=== PATIENT | female | born 1980 | race American Indian/Alaskan Native ===

== ENCOUNTER 2017-09-11 20:54 | Emergency (ER) | payer SELFPAY ==
[2017-09-11 21:55] LABS: Basophils # (Auto) 0.1 K/mm3 (0.0-0.1); Eosinophils # (Auto) 0.1 K/mm3 (0.0-0.4); Eosinophils % (Auto) 1.1 % (0.0-4.3); Lymphocytes # (Auto) 3.5 K/mm3 (1.2-5.4); Lymphocytes % (Auto) 37.7 % (13.4-35.0); Mean Corpuscular HGB Conc 30 % (30-34); Monocytes # (Auto) 0.6 K/mm3 (0.0-0.8); Monocytes % (Auto) 6.6 % (0.0-7.3); Platelet Count 410 K/mm3 (140-440); Red Blood Count 6.13 M/mm3 (3.65-5.03); Red Cell Distribution Width 17.1 % (13.2-15.2)
[2017-09-11 22:03] LABS: BUN/Creatinine Ratio 11; Blood Urea Nitrogen 10 mg/dL (7-17); Calcium 9.1 mg/dL (8.4-10.2); Hemolysis Index 2
[2017-09-11 22:25] LABS: Hematocrit 40.7 % (30.3-42.9); Hemoglobin 12.4 gm/dl (10.1-14.3); Mean Corpuscular Volume 67 fl (79-97)
[2017-09-11 22:26] LABS: Mean Corpuscular Hemoglobin 20 pg (28-32)
[2017-09-11] MEDS ORDERED: NACL 0.9% 1000 ML 2,000 ML IV ONE (22:35)
[2017-09-11] MEDS ORDERED: NACL 0.9% 1000 ML 1,000 ML ONE ×2 (22:40→22:45)
[2017-09-12 00:09] LABS: Bilirubin,Urine NEG (Negative); Blood,Urine LG (Negative); Color,Urine Straw (Yellow); Protein,Urine <15 mg/dL mg/dL (Negative); Urobilinogen,Urine < 2.0 mg/dL (<2.0)
--- NOTE | 2017-09-12 11:13 | Emergency Department Report ---
ED Chest Pain HPI - General Chief Complaint: Chest Pain Stated Complaint: BLURR VISION, DIZZINESS,NAUSEATED Time Seen by Provider: 09/12/17 11:07 Source: patient Mode of arrival: Ambulatory Limitations: No Limitations - History of Present Illness Initial Comments: This is a morbidly obese 37-year-old female who presents to the emergency department with multiple complaints none of which are particularly active at this time. Yesterday she arrives with chief complaint of blurred vision dizziness and nausea. She also mentioned that she had been having chest discomfort which is augmented by a deep inspiration. She does not complain of acute shortness of breath. She denies cough or hemoptysis leg pain or swelling. She's had no recent travel. Apparently she did not report a prior history of pulmonary embolism but she now tells me that she had a pulmonary embolism about 7 years ago. She states this was treated with a "tube that got rid of the clot". The patient describes the tube entering her right antecubital fossa and going towards her heart to accomplish this task. She stated that she was treated with blood thinners in the hospital for a month. She gives a positive family history for DVT of the leg in a grandmother. She does not report any significant coronary artery disease in her family. Her prior visit for evaluation of chest pain apparently resulted in the diagnosis of pulmonary embolism. At the time of my encounter the patient is not complaining of chest pain nor any shortness of breath. She is not tachycardic or hypoxic. She is in no distress. I have expanded her workup. She apparently received 2 L of normal saline shortly after midnight last night. Her sugar has been going down. This normal saline was apparently well tolerated. Complaint: chest pain -: Gradual Onset: during rest Pain Location: substernal Pain Radiation: none Severity: mild Severity scale (0 -10): 3 Quality: heaviness Consistency: intermittent, now resolved Improves With: other Worsens With: inspiration (deep inspiration ) Context: other (morbid obesity) re: nausea, other (dizziness) Other Symptoms: denies: cough, fever, syncope Treatments Prior to Arrival: none Aspirin use within the Past 7 Days: (0) No - Related Data On Oral Contraceptives: No Home Medications Medication Instructions Recorded Confirmed Last Taken Insulin Aspart [NovoLOG Flexpen] 10 units SQ AC 09/12/17 09/12/17 09/11/17 Insulin Detemir [Levemir VIAL] 35 unit SQ QHS 09/12/17 09/12/17 09/11/17 amLODIPine [Norvasc] 5 mg PO DAILY 09/12/17 09/12/17 09/11/17 Allergies Allergy/AdvReac Type Severity Reaction Status Date / Time No Known Allergies Allergy Unverified 04/30/13 12:34 Heart Score - HEART Score History: Moderately suspicious EKG: Normal Age: < 45 Risk factors: 1-2 risk factors Troponin: < normal limit HEART Score: 2 - Critical Actions Critical Actions: 0-3 pts:0.9-1.7%risk of adverse cardiac event.Candidate for discharge ED Review of Systems ROS: Stated complaint: BLURR VISION, DIZZINESS,NAUSEATED Other details as noted in HPI Constitutional: other (dizziness). denies: chills, fever Eyes: vision change. denies: eye pain, eye discharge ENT: denies: ear pain, throat pain Respiratory: SOB with exertion. denies: cough, shortness of breath, wheezing Cardiovascular: chest pain. denies: palpitations Endocrine: no symptoms reported Gastrointestinal: nausea. denies: abdominal pain, diarrhea Genitourinary: denies: urgency, dysuria, discharge Musculoskeletal: denies: back pain, joint swelling, arthralgia Skin: denies: rash, lesions Neurological: denies: headache, weakness, paresthesias Psychiatric: denies: anxiety, depression Hematological/Lymphatic: denies: easy bleeding, easy bruising ED Past Medical Hx - Past Medical History Previous Medical History?: Yes Hx Hypertension: Yes Hx Diabetes: Yes Hx of Cancer: Yes (december 2015, uterine Ca) Hx Asthma: Yes - Surgical History Past Surgical History?: No - Social History Smoking Status: Never Smoker Substance Use Type: None - Medications Home Medications: Home Medications Medication Instructions Recorded Confirmed Last Taken Type Insulin Aspart [NovoLOG Flexpen] 10 units SQ AC 09/12/17 09/12/17 09/11/17 History Insulin Detemir [Levemir VIAL] 35 unit SQ QHS 09/12/17 09/12/17 09/11/17 History amLODIPine [Norvasc] 5 mg PO DAILY 09/12/17 09/12/17 09/11/17 History ED Physical Exam - General Limitations: Physical Limitation General appearance: alert, in no apparent distress, obese (morbidly) - Head Head exam: Present: atraumatic, normocephalic - Eye Eye exam: Present: normal appearance. Absent: scleral icterus - ENT ENT exam: Present: mucous membranes moist - Neck Neck exam: Present: normal inspection. Absent: tenderness, meningismus - Respiratory Respiratory exam: Present: normal lung sounds bilaterally. Absent: respiratory distress - Cardiovascular Cardiovascular Exam: Present: regular rate, normal rhythm. Absent: systolic murmur, diastolic murmur, rubs, gallop - GI/Abdominal GI/Abdominal exam: Present: soft, normal bowel sounds. Absent: distended, tenderness, guarding, rebound, rigid - Extremities Exam Extremities exam: Present: normal inspection, full ROM, normal capillary refill , pedal edema. Absent: tenderness, joint swelling, calf tenderness - Back Exam Back exam: Present: normal inspection - Neurological Exam Neurological exam: Present: alert, oriented X3, CN II-XII intact. Absent: motor sensory deficit - Psychiatric Psychiatric exam: Present: normal affect, normal mood - Skin Skin exam: Present: warm, dry, intact, normal color. Absent: rash ED Course Vital Signs 09/11/17 09/12/17 09/12/17 21:25 06:59 12:35 Temperature 98.4 F 97.6 F Pulse Rate 101 H 99 H 82 Respiratory 18 20 18 Rate Blood Pressure 175/104 Blood Pressure 157/107 144/76 [Left] O2 Sat by Pulse 97 98 97 Oximetry - Reevaluation(s) Reevaluation #1: Patient was given IV insulin. Her sugar was improving. She did not have any active chest pain in the emergency department whatsoever. Her d-dimer was normal. She is admitted by the hospitalist service for further care and management. 09/12/17 15:49 NICOLAS score - Nicolas Score Age > 65: (0) No Aspirin use within the Past 7 Days: (0) No 3 or more CAD Risk Factors: (1) Yes 2 or more Angina events in past 24 hrs: (0) No Known CAD with more than 50% Stenosis: (0) No Elevated Cardiac Markers: (0) No ST Deviation Greater than 0.5mm: (0) No NICOLAS Score: 1 ED Medical Decision Making - Lab Data Result diagrams: 09/11/17 21:41 09/12/17 11:47 Laboratory Results - last 24 hr 09/11/17 09/11/17 09/11/17 21:41 21:41 21:41 WBC 9.4 RBC 6.13 H Hgb 12.4 Hct 40.7 MCV 67 L MCH 20 L MCHC 30 RDW 17.1 H Plt Count 410 Lymph % (Auto) 37.7 H [place] % (Auto) 6.6 Eos % (Auto) 1.1 Baso % (Auto) 1.0 Lymph # 3.5 Tyler # 0.6 Eos # 0.1 Baso # 0.1 Seg Neutrophils % 53.6 Seg Neutrophils # 5.0 Sodium 131 L Potassium 4.8 Chloride 90.2 L Carbon Dioxide 25 Anion Gap 21 BUN 10 Creatinine 0.9 Estimated GFR > 60 BUN/Creatinine Ratio 11 Glucose 641 H* POC Glucose Calcium 9.1 HCG, Qual Negative Urine Color Urine Turbidity Urine pH Ur Specific [place] Urine Protein Urine Glucose (UA) Urine Ketones Urine Blood Urine Nitrite Urine Bilirubin Urine Urobilinogen Ur Leukocyte Esterase Urine WBC (Auto) Urine RBC (Auto) U Epithel Cells (Auto) 09/11/17 09/11/17 09/12/17 22:33 Unknown 07:17 WBC RBC Hgb Hct MCV MCH MCHC RDW Plt Count Lymph % (Auto) [place] % (Auto) Eos % (Auto) Baso % (Auto) Lymph # Tyler # Eos # Baso # Seg Neutrophils % Seg Neutrophils # Sodium Potassium Chloride Carbon Dioxide Anion Gap BUN Creatinine Estimated GFR BUN/Creatinine Ratio Glucose POC Glucose 484 H 392 H Calcium HCG, Qual Urine Color Straw Urine Turbidity Clear Urine pH 5.0 Ur Specific [place] 1.026 Urine Protein <15 mg/dl Urine Glucose (UA) >=500 Urine Ketones Neg Urine Blood Lg Urine Nitrite Neg Urine Bilirubin Neg Urine Urobilinogen < 2.0 Ur Leukocyte Esterase Neg Urine WBC (Auto) 2.0 Urine RBC (Auto) 18.0 U Epithel Cells (Auto) 1.0 - EKG Data -: EKG Interpreted by Me EKG shows normal: sinus rhythm, axis, intervals, QRS complexes, ST-T waves Rate: normal - EKG Data Interpretation: normal EKG - Radiology Data Radiology results: report reviewed (chest x-ray no acute process) Critical care attestation.: If time is entered above; I have spent that time in minutes in the direct care of this critically ill patient, excluding procedure time. ED Disposition Clinical Impression: Atypical chest pain, Essential hypertension Hyperglycemia due to type 2 diabetes mellitus Qualifiers: Diabetes mellitus terminal make up operator insulin use: with terminal make up operator use Qualified Code(s): E11.65 - Type 2 diabetes mellitus with hyperglycemia; Z79.4 - custodial (current ) use of insulin Disposition: TO HOME OR SELFCARE Is pt being admited?: Yes Does the pt Need Aspirin: Yes Condition: Stable Instructions: Chest Pain (ED), Diabetes Mellitus Type 2 in Adults (ED), Hypertension (ED) Referrals: PRIMARY CARE, [Primary Care Provider] - 3-5 Days Time of Disposition: 15:51
[2017-09-12] MEDS ORDERED: ASPIRIN PO ONE (11:32)
[2017-09-12] MEDS ORDERED: HumuLIN R IV ONE (11:33)
--- NOTE | 2017-09-12 11:51 | XRay Report ---
AP CHEST: HISTORY: chest pain AP view of the chest demonstrates a normal mediastinal and cardiac contour with clear lungs and normal bony and soft tissue structures. IMPRESSION: Unremarkable AP chest.
[2017-09-12 12:30] LABS: INR 0.95 (0.87-1.13)
[2017-09-12 12:31] LABS: Partial Thromboplastin Time 27.8 Sec. (24.2-36.6)
[2017-09-12 12:45] LABS: Alanine Aminotransferase 13 units/L (7-56); Albumin 3.6 g/dL (3.9-5); BUN/Creatinine Ratio 14; Bilirubin,Direct < 0.2 mg/dL (0-0.2); Blood Urea Nitrogen 10 mg/dL (7-17); Calcium 9.5 mg/dL (8.4-10.2); Chol/HDL Ratio 4.44 %; HDL Cholesterol 45 mg/dL (40-59); Hemolysis Index 10; LDL Cholesterol,Direct 151 mg/dL (50-130)
[2017-09-12 12:46] LABS: Creatine Kinase MB < 1.0 ng/mL (0.0-4.0)
--- NOTE | 2017-09-12 13:45 | History and Physical Report ---
History of Present Illness Chief complaint: I dont feel good History of present illness: 37 YO Female with MO, HTN, DM, Asthma presents to ED for evaluation. Pt initially complained of chest pain and treated [facility] chest pain protocol. Pt workup negative, Pt acknowledges medication noncompliance. Pt restarted on home medication with improvement in symptoms. Pt counseled regarding medication noncompliance. Pt discharged home and instructed to f/u pcp 5 days, as well as cardiology within 5 days for stress test. Pt to f/u with GI prn. Past History Past Medical History: diabetes, hypertension Medications and Allergies Allergies Allergy/AdvReac Type Severity Reaction Status Date / Time lisinopril Allergy Hives Verified 09/12/17 19:36 Home Medications Medication Instructions Recorded Confirmed Last Taken Type Hydrochlorothiazide [HCTZ] 25 mg PO QDAY #30 tablet 09/12/17 Unknown Rx Insulin Aspart [NovoLOG Flexpen] 10 units SQ AC #1 insuln.pen 09/12/17 Unknown Rx Insulin Detemir [Levemir VIAL] 35 unit SQ QHS #1 vial 09/12/17 Unknown Rx amLODIPine [Norvasc] 10 mg PO DAILY #30 tablet 09/12/17 Unknown Rx Exam - Constitutional Vitals: Temp Pulse Resp BP Pulse Ox 97.6 F 82 18 144/76 97 09/12/17 12:35 09/12/17 12:35 09/12/17 12:35 09/12/17 12:35 09/12/17 12:35 Results - Labs CBC & Chem 7: 09/11/17 21:41 09/12/17 11:47 Labs: Abnormal lab results 09/11/17 09/11/17 09/11/17 Range/Units 21:41 21:41 22:33 RBC 6.13 H (3.65-5.03) M/mm3 MCV 67 L (79-97) fl MCH 20 L (28-32) pg RDW 17.1 H (13.2-15.2) % Lymph % (Auto) 37.7 H (13.4-35.0) % Sodium 131 L (137-145) mmol/L Chloride 90.2 L (98-107) mmol/L Glucose 641 H* (65-100) mg/dL POC Glucose 484 H (70-105) Albumin (3.9-5) g/dL Cholesterol (50-199) mg/dL LDL Cholesterol Direct (50-130) mg/dL 09/12/17 09/12/17 09/12/17 Range/Units 07:17 11:47 12:40 RBC (3.65-5.03) M/mm3 MCV (79-97) fl MCH (28-32) pg RDW (13.2-15.2) % Lymph % (Auto) (13.4-35.0) % Sodium (137-145) mmol/L Chloride 95.7 L (98-107) mmol/L Glucose 393 H (65-100) mg/dL POC Glucose 392 H 321 H (70-105) Albumin 3.6 L (3.9-5) g/dL Cholesterol 200 H (50-199) mg/dL LDL Cholesterol Direct 151 H (50-130) mg/dL
[2017-09-12] MEDS ORDERED: D50W (25GM) Syringe IV PRN (13:46)
[2017-09-12] MEDS ORDERED: HCTZ PO ONE (13:52)
[2017-09-12] MEDS ORDERED: ZESTRIL PO ONE (14:00)
[2017-09-12] MEDS ORDERED: NACL 0.45% 1,000 ML IV SCH (14:00)
[2017-09-12] MEDS ORDERED: ZESTRIL ONE (17:31)
[2017-09-12] MEDS ORDERED: HCTZ ONE (17:31)
[2017-09-12] MEDS ORDERED: HumaLOG SUB-Q SCH (18:00)
[2017-09-12 20:02] VITALS: BP 154/93
== END 2017-09-12 20:53 | disposition home or self-care (01) ==
LOC: ED 20:54
DX: R07.89 Other chest pain (principal); I10 Essential (primary) hypertension; E11.9 Type 2 diabetes mellitus without complications; J45.909 Unspecified asthma, uncomplicated; R06.02 Shortness of breath; Z88.8 Allergy status to other drugs, medicaments and biological substances
CPT/HCPCS: 36415; 71045; 80048; 80061; 80074; 81001; 82550; 82553; 82962; 83735; 83880; 84484; 84703; 85025; 85379; 85610; 85730; 87086; 93005; 93010; 96372; 96374; 99284; J7030; J1815